=== PATIENT | female | born 1995 ===

== ENCOUNTER 2025-04-26 09:16 | Outpatient (CLI) | payer OTHER ==
[2025-04-26 10:21] LABS: BASO % 1.3 % (0.1-1.2); EOS # 0.15 (0.04-0.54); EOS % 5.0 % (0.7-7.0); LYMPH # 1.55 (1.18-3.74); LYMPH % 51.7 % (19.3-53.1); MEAN PLATELET VOLUME 11.10 fl (9.4-12.4); MONO # 0.23 (0.24-0.82); MONO % 7.7 % (4.7-12.5); NEUT # 1.03 (1.56-6.13); NEUT % 34.3 % (34.0-71.1); RED CELL DISTRIBUTION WIDTH 12.2 % (11.6-14.4)
[2025-04-26 11:25] LABS: % SATURACION 18.1 % (15-50); ALT/SGPT 30.0 U/L (12-78); AST/SGOT 16.0 U/L (15-37); BILIRUBIN TOTAL 0.31 mg/dL (0.3-1.2); BUN CREA RATIO 18.0 (7.0-25.0); CREATININE SERUM 0.49 mg/dL (0.55-1.02); FE 75.0 ug/dl (50-170); GFR 149.31; GLOBULINA 3.5 G/DL (2.4-3.5); GLUCOSE FASTING 91.0 mg/dL (65-100); LDH 142.0 U/L (84-246); OSMOLALITY SERUM 283.0 MOSM/KG (275-295); T4 FREE 1.0 NG/ML (0.76-1.46); TSH 1.02 uIU/mL (0.358-3.74)
[2025-04-26 12:11] LABS: FOLIC ACID 14.93 ng/ml (4.78-20)
[2025-04-27 09:07] LABS: ANTI THYROID PEROXIDASE 10 IU/mL (0-34)
== END 2025-04-26 09:17 | disposition home or self-care (01) ==
LOC: LAB 09:16
PROVIDERS: ATTEND Internal Medicine Hematology & Oncology
DX: D50.8 Other iron deficiency anemias (principal); I10 Essential (primary) hypertension; R74.02 Elevation of levels of lactic acid dehydrogenase [LDH]; K76.89 Other specified diseases of liver; R79.9 Abnormal finding of blood chemistry, unspecified; E03.8 Other specified hypothyroidism; E06.3 Autoimmune thyroiditis; N93.8 Other specified abnormal uterine and vaginal bleeding